=== PATIENT | male | born 2000 | race Caucasian/White ===

== ENCOUNTER 2019-10-23 00:07 | Outpatient (CLI) | payer OTHER, SELFPAY ==
[2019-10-23 16:39] LABS: SARS-CoV-2 RNA PCR Negative
== END 2019-10-23 00:08 | disposition home or self-care (01) ==
LOC: ANHCOVIDDT 00:08
PROVIDERS: Visit Provider Internal Medicine Gastroenterology
DX: Z01.812 Encounter for preprocedural laboratory examination (principal); Z11.59 Encounter for screening for other viral diseases
CPT/HCPCS: 87635; C9803; U0003

== ENCOUNTER 2019-11-27 01:17 | Outpatient (CLI) | payer OTHER, SELFPAY ==
[2019-11-27 17:41] LABS: SARS-CoV-2 RNA PCR Negative
== END 2019-11-27 01:18 | disposition home or self-care (01) ==
LOC: ANHCOVIDDT 01:17
PROVIDERS: Visit Provider Internal Medicine Gastroenterology
DX: Z01.812 Encounter for preprocedural laboratory examination (principal); Z20.828 Contact with and (suspected) exposure to other viral communicable diseases
CPT/HCPCS: 87635; C9803; U0003

== ENCOUNTER 2019-11-29 02:21 | Day surgery (SDC) | payer OTHER, SELFPAY ==
[2019-10-20 14:20] VITALS: BMI 23.0
[2019-11-22 15:04] VITALS: BMI 27.4
[2019-11-29 06:43] VITALS: BP 145/78; PULSE 88; RESP 14; TEMP 36.4; O2SAT 100; BMI 29.0
[2019-11-29] MEDS: LACTATED RINGERS 1,000 ML 150 ML IV CONT (06:52)
--- NOTE | 2019-11-29 07:14 | WPDANESEPPF ---
Anes - Initial Pre Proc Eval Procedure: Operation Date: 11/29/19 07:30 Proposed Procedures p Colonoscopy - Scott Woody MD Date/Time: 11/29/19 07:14 Surgeon: Scott Woody MD Pre Op Diagnosis: Lower GI Bleed Patient Data Age: 19 Gender: M Height: 5 ft 8 in Weight: 86.7 kg Last Vital Signs Temp 97.6 F 11/29/19 06:43 Pulse 88 11/29/19 06:43 Resp 14 11/29/19 06:43 BP 145/78 H 11/29/19 06:43 Pulse Ox 100 11/29/19 06:43 Allergies Allergy/AdvReac Type Severity Reaction Status Date / Time No Known Allergies Allergy Verified 11/29/19 06:41 Home Medications Medication Instructions Recorded Confirmed Type dextroamphetamine-amphetamine 20 mg PO DAILY 10/20/19 10/20/19 History escitalopram oxalate 10 mg PO DAILY 10/20/19 11/22/19 History fluticasone furoate-vilanterol 1 ea INHALATION DAILY 10/20/19 10/20/19 History [Breo Ellipta] Patient hx anesthesia problems: none Family hx anesthesia problems: none PMFSH Past Medical History Medical History (Updated 11/29/19 @ 07:15 by Jonas Vo MD) ADHD (attention deficit hyperactivity disorder) Asthma Family History Family History (Updated 08/30/09 @ 12:57 by DOCTOR UNKNOWN) Other Family history of coronary artery disease Social History Social History Smoking status: Never smoker Alcohol intake: current Substance use: current Substance use type: marijuana Other substance usage details: EDIBLES OCCASSIONAL Last use: 09/2019 Living arrangements: with roommate(s) Spiritual care concerns: No Anes - Eval Final PreProcedure Day of Procedure 11/29/19 07:14 Patient weight: normal Heart: regular rate and rhythm Lungs: clear to auscultation Airway: Mallampati scale class II Neurological: alert and oriented Last oral intake: >/= 8 hours ASA classification: II Emergent: no Anesthetic plan: proceed Anesthesia type and monitoring: general GIVS and standard monitoring Informed Consent: The patient's anesthetic plan and its attendant risks and benefits were discussed with the patient/family/POA. Questions were solicited and answers provided to the satisfaction of the patient/family/POA.
--- NOTE | 2019-11-29 07:58 | WPDGICN ---
Assessment and Plan Assessment and plan (1) Rectal bleeding: Code(s): K62.5 - Hemorrhage of anus and rectum Status: Acute Assessment and Plan: Because of ongoing rectal bleeding and colonoscopy is arranged. High-fiber diet is advised. For the possibility of internal hemorrhoids. Further recommendations may be given after endoscopy. (2) IBS (irritable bowel syndrome): Code(s): K58.9 - Irritable bowel syndrome without diarrhea Status: Acute Assessment and Plan: Patient has alternating bowel habits suspicious for irritable bowel syndrome. Fiber supplementation has been advised and should continue. GI Consult Note Consult date/time: 11/29/19 07:58 HPI: Erick Husain is a 19 year old male Seen in evaluation at the request of Dr. Carpenter. patient complains of frequent bright red blood per rectum. He states that his admixed with his stools. He notices occasional discomfort associated with bowel movements. Symptoms started in July of 2019. He reports that his bowel habits are somewhat irregular. Alternating loose and hard stools. His family history is noncontributory. His weight has remained stable. Presents today for colonoscopy. Review of Systems Review of Systems: All systems reviewed & are unremarkable except as noted in HPI and below PMFSH Past Medical History Medical History ADHD (attention deficit hyperactivity disorder) Asthma Family History Family History (Updated 08/30/09 @ 12:57 by DOCTOR UNKNOWN) Other Family history of coronary artery disease Social History Social History Smoking status: Never smoker Alcohol intake: current Substance use: current Substance use type: marijuana Other substance usage details: EDIBLES OCCASSIONAL Last use: 09/2019 Living arrangements: with roommate(s) Spiritual care concerns: No Meds Home Medications and Allergies Home Medications Medication Instructions Recorded Confirmed Type dextroamphetamine-amphetamine 20 mg PO DAILY 10/20/19 10/20/19 History escitalopram oxalate 10 mg PO DAILY 10/20/19 11/22/19 History fluticasone furoate-vilanterol 1 ea INHALATION DAILY 10/20/19 10/20/19 History [Breo Ellipta] Allergies Allergy/AdvReac Type Severity Reaction Status Date / Time No Known Allergies Allergy Verified 11/29/19 06:41 Vital Signs Vital Signs - 24 hr 11/29/19 06:43 Temperature 97.6 F Pulse Rate 88 Respiratory Rate 14 Blood Pressure 145/78 H Pulse Oximetry 100 Exam Narrative: Exam Narrative: Physical exam reveals patient to be alert. Vital signs stable. HEENT exam unremarkable. Lungs are clear to auscultation and percussion. Heart is without murmur or extra sounds. Abdominal exam bowel sounds are present soft nontender with no organomegaly. Digital external rectal exam is normal.
[2019-11-29 07:59] VITALS: BP 106/57; PULSE 73; RESP 22; O2SAT 99
[2019-11-29 08:09] VITALS: BP 108/60; PULSE 70; RESP 19; O2SAT 99
[2019-11-29 08:19] VITALS: BP 125/72; PULSE 82; RESP 16; O2SAT 100
== END 2019-11-29 08:28 | disposition home or self-care (01) ==
PROVIDERS: Visit Provider Internal Medicine Gastroenterology
PROC: 0DJD8ZZ Inspection of Lower Intestinal Tract, Via Natural or Artificial Opening Endoscopic (ICD-10-PCS; CPT 45378; principal; 2019-11-29 07:30)
DX: K62.5 Hemorrhage of anus and rectum (principal); K64.8 Other hemorrhoids; R10.84 Generalized abdominal pain; K58.9 Irritable bowel syndrome, unspecified; F90.9 Attention-deficit hyperactivity disorder, unspecified type; J45.909 Unspecified asthma, uncomplicated; F12.90 Cannabis use, unspecified, uncomplicated
CPT/HCPCS: 45378; J2704; J7120